=== PATIENT | male | born 1980 | race African-American/Black ===

== ENCOUNTER 2017-09-24 02:52 | Emergency (ER) | payer SELFPAY ==
[~2017-09-24] VITALS: Ht 182.9 cm; Wt 110.2 kg
--- OUTSIDE RECORDS SUMMARY | 2017-09-24 03:01 | XMS REPORT ---
Author Author SHRUTHI ALVARADO Organization [facility] Address [address] [place] [address] Care Team Providers Care Financial Project Manager Name Role Phone SHRUTHI ALVARADO Unavailable PROBLEMS Unknown Problems ALLERGIES No Information ENCOUNTERS Encounter Location Date Diagnosis [facility] [address] [facility] [id number], [place] [address] Dec, [facility] [address] [facility] [id number], [place] [address] Nov, Itching L29.9 IMMUNIZATIONS No Known Immunizations SOCIAL HISTORY Never Assessed REASON FOR VISIT [facility] rx PLAN OF CARE VITAL SIGNS MEDICATIONS Medication Instructions Dosage Frequency Start Date End Date Duration Status Diphendryl 25 MG Orally at bedtime 1 capsule as needed Nov, Active RESULTS No Results PROCEDURES No Known procedures INSTRUCTIONS MEDICATIONS ADMINISTERED No Known Medications
[2017-09-24] MEDS ORDERED: DOCUSATE SODIUM 100 MG (COLACE) CAP PO ONE (03:15)
--- NOTE | 2017-09-24 04:12 | ED General ---
General Chief Complaint: Ear Problems Stated Complaint: LEFT EAR FULL OF SOMETHING (wax?) Nursing Triage Note: PT PRESENTS TO ER WITH COMPLAINT OF LEFT EAR BLOCKAGE. Nursing Sepsis Screen: No Definite Risk Source of Information: Patient Exam Limitations: No Limitations History of Present Illness Date Seen by Provider: Sep 24, 2017 Time Seen by Provider: 02:59 Initial Comments This 37-year-old gentleman presents to the emergency room with complaints of discomfort and loss of hearing in the left ear. He feels like it is blocked or clogged. He denies any other symptoms. This was causing him discomfort and annoyance while he was trying to sleep tonight. Allergies and Home Medications Allergies Coded Allergies: No Known Drug Allergies (Unverified , 09/24/17) Patient Home Medication List Home Medication List Reviewed: Yes Review of Systems Constitutional: no symptoms reported EENTM: see HPI Respiratory: no symptoms reported Psychiatric/Neurological: No Symptoms Reported Past Bcbnxol-Qngjqa-Vpnqxu Hx Past Med/Social Hx: Reviewed Nursing Past Med/Soc Hx Patient Social History Alcohol Use: Regular Use Alcohol Beverage of Choice: Beer Recreational Drug Use: No Smoking Status: Current Everyday Smoker Recent Foreign Travel: No Contact w/Someone Who Travel: No Recent Infectious Disease Expo: No Recent Hopitalizations: No Immunizations Up To Date Tetanus Booster (TDap): Unknown PED Vaccines UTD: Yes Seasonal Allergies Seasonal Allergies: No Past Medical History Surgeries: No Respiratory: No Cardiac: No Neurological: No Genitourinary: No Gastrointestinal: No Musculoskeletal: No Endocrine: No HEENT: No Cancer: No Psychosocial: No Integumentary: No Blood Disorders: No Physical Exam Vital Signs Vital Signs - First Documented 09/24/17 02:59 Pulse 88 Resp 20 B/P (MAP) 138/80 (99) Pulse Ox 100 Capillary Refill : Less Than 3 Seconds Height, Weight, BMI Height: 6'0" Weight: 243lbs. oz. 110.578530iz; BMI Method:Stated General Appearance: No Apparent Distress, WD/WN HEENT: PERRL/EOMI, Normal ENT Inspection, Other (Left ear canal obstructed with cerumen impaction) Neck: Normal Inspection Neurologic/Psychiatric: Alert, Oriented x3, No Motor/Sensory Deficits, Normal Mood/Affect, quartz cutter II-XII Norm as Tested Skin: Normal Color, Warm/Dry Progress/Results/Core Measures Suspected Sepsis Recent Fever Within 48 Hours: No Infection Criteria Present: None New/Unexplained Altered Menta: No Sepsis Screen: No Definite Risk SIRS Temperature: Pulse: 88 Respiratory Rate: 20 Blood Pressure 138 /80 Mean: 99 Results/Orders My Orders Medications Given in ED Vital Signs/I&O Capillary Refill : Less Than 3 Seconds Blood Pressure Mean: 99 Progress Note : Progress Note Some of the sermon was removed with an ear loop. The remaining cerumen was softened with Colace and then flushed out with irrigation. Patient tolerated the procedure well. Departure Impression Primary Impression: Cerumen impaction Qualified Codes: H61.22 - Impacted cerumen, left ear Disposition: HOME, SELF-CARE Condition: Improved Departure-Patient Inst. Decision time for Depature: 04:10 Referrals: NO,LOCAL PHYSICIAN (PCP/Family) Primary Care Physician Patient Instructions: Ear Wax Impaction (DC) Add. Discharge Instructions: Avoid inserting Q-tips or any other object into the ureter beyond the rim of the ear canal. You may use [id number] earwax removal products such as D Brox. Follow-up with your primary care provider as necessary if you have any further problems or concerns. All discharge instructions reviewed with patient and/or family. Voiced understanding. SRIRAM OLIVER MD Sep 24, 2017 04:11
[2017-09-24 04:18] VITALS: BP 138/80
== END 2017-09-24 04:18 | disposition home or self-care (01) ==
LOC: ER 02:57
DX: H61.22 Impacted cerumen, left ear (principal); F17.200 Nicotine dependence, unspecified, uncomplicated
CPT/HCPCS: 99282